=== PATIENT | female | born 2000 | race Caucasian/White ===

== ENCOUNTER 2020-12-25 09:02 | Emergency (ER) | payer OTHER, SELFPAY ==
[2020-12-25 09:07] VITALS: BP 122/73; PULSE 103; RESP 16; TEMP 37.2; O2SAT 100
--- NOTE | 2020-12-25 09:24 | ED.FEMALEGU ---
HPI - Female Genitourinary General Chief complaint: Urogenital-Female Stated complaint: blood in urine Source: patient and RN notes reviewed Limitations: no limitations History of Present Illness HPI Narrative: The patient, previously mostly healthy, presents with urinary symptoms. Patient states she has a 2-day history of urinary dysuria, urgency , malodor associated yesterday with some occasional hematuria. No fever, low back pain, N/V/D, vaginal discharge[she declines STD testing]; symptoms are mild, most noticeable in the micturation. She relates she has a prior history of orthostasis [last time when she saw blood], associated with brief faint upon standing today. No chest pain, S OB, palpitations, lateralizing weakness, seizure,OSORIO. Related Data Home Medications Medication Instructions Recorded Confirmed Zoloft 12/25/20 Allergies Allergy/AdvReac Type Severity Reaction Status Date / Time amoxicillin [From Augmentin] Allergy Unknown Verified 12/25/20 09:12 clavulanic acid Allergy Unknown Verified 12/25/20 09:12 [From Augmentin] Review of Systems Review of Systems: Narrative: General/Constitutional: No weight loss,fever Eyes: N0: Redness,discharge Ears/Nose/Throat: No: Epistaxis,ear discharge Respiratory: Denies: Hemoptysis Gastrointestinal: No Vomiting, Bleeding-rectal Skin: No Lumps, eruption Neurologic: No Focal Weakness,Sz Hematologic: Denies: Petechiae/Purpura Psychiatric: No: Suicida ideationl All Other Systems: Reviewed and Negative PMFSH Comments At time of signature, agree with nursing past medical, surgical, social and family history. There is no relevant family history pertinent to the presenting complaint Exam Narrative: Exam Narrative: General Appearance: Well appearing, Conjunctiva clear Ears: External ear normal Nose: Normal nose Mouth/Throat: Normal appearing, Normal lips Neck: Supple Respiratory: Airway patent, No respiratory distress Cardiovascular: RRR Abdomen: Soft, Non-tender, No massess, No organomegaly (no rebound/ surgical signs), Musculoskeletal: Full ROM Skin: Warm, Dry Neurological: A&O x3, , Normal affect Course Vital Signs Vital signs: Vital Signs Temperature 99.0 F 12/25/20 09:07 Pulse Rate 103 H 12/25/20 09:07 Respiratory Rate 16 12/25/20 09:07 Blood Pressure 122/73 12/25/20 09:07 Pulse Oximetry 100 12/25/20 09:07 Temperature 99.0 F 12/25/20 09:07 Pulse Rate 104 H 12/25/20 09:32 Respiratory Rate 16 12/25/20 09:07 Blood Pressure 108/72 12/25/20 09:32 Pulse Oximetry 100 12/25/20 09:07 MDM - Female Genitourinary Lab Data Labs: G Bedside Result Negative Reference Range: Negative Urine Glucose Negative Reference Range: Negative Urine Bilirubin Negative Reference Range: Negative Urine Ketone Negative Reference Range: Negative Urine Specific [place] 1.020 Reference Range:1.001-1.035 Urine Blood 2+ Reference Range: Negative * * Urine pH 7.0 Reference Range: 5.0-9.0 Urine Protein Negative Reference Range: Negative Urine Urobilinogen 0.2 Reference Range: 0.2-1.0 Urine Nitrate Positive Reference Range: Negative Urine Leukocyte 1+
[2020-12-25 09:32] VITALS: BP 108/72; BP 111/68; BP 116/72; PULSE 104; PULSE 95; PULSE 97
== END 2020-12-25 10:02 | disposition home or self-care (01) ==
PROVIDERS: Emergency Provider Emergency Medicine
DX: N30.01 Acute cystitis with hematuria (principal); R55 Syncope and collapse
CPT/HCPCS: 81003; 81025; 87077; 87086; 87088; 87186; 99213; G0463